=== PATIENT | male | born 1990 | race Caucasian/White ===

== ENCOUNTER 2024-10-30 15:25 | Emergency (ER) | payer SELFPAY ==
--- NOTE | ~2024-10-30 | XR_ITS ---
HISTORY: injury COMPARISON: None TECHNIQUE: 3 views of the right hand were performed. FINDINGS: Acute nondisplaced spiral fracture within the proximal shaft of the third metacarpal. The joint spaces are preserved. The carpal arcs are intact. Mild radiocarpal joint space narrowing with sclerosis of the distal radius is present. Bone mineralization is age-appropriate. Significant dorsal soft tissue swelling. No radiopaque foreign body is identified. IMPRESSION: Acute nondisplaced spiral fracture within the proximal shaft of the third metacarpal with overlying soft tissue swelling. Reviewed, dictated and finalized at location A.
[2024-10-30 15:34] VITALS: BP 115/73; PULSE 83; RESP 16; TEMP 36.5; O2SAT 99
--- NOTE | 2024-10-30 16:19 | ED_ITS ---
HPI - Extremity Injury (Upper) General Chief Complaint: Extremity Injury, Upper Stated Complaint: Right Hand Pain Time Seen by Provider: 10/30/24 15:30 Source: patient Mode of arrival: ambulatory Limitations: no limitations History of Present Illness HPI narrative: Patient is a 34-year-old male who presents pain and swelling to right hand since yesterday when he punched a piece of metal. No cuts or lacerations. Has taken ibuprofen and used ice Related Data Allergies Allergy/AdvReac Type Severity Reaction Status Date / Time No Known Allergies Allergy Verified 10/30/24 15:27 Review of Systems Review of Systems: All systems reviewed & are unremarkable except as noted in HPI and below Constitutional: Constitutional: Denies body ache(s), Denies fever(s), Denies headache(s), Denies malaise and Denies weakness Eyes: Eyes: Reports no additional eye complaints and Denies loss of vision ENT: Reports system reviewed and no additional complaints, except as documented, Denies otalgia, Denies headache(s), Denies nasal discharge, Denies sinus pain and Denies sore throat Cardiovascular: Cardiovascular: Reports no additional cardiovascular complaints, Denies chest pain, Denies irregular heart rhythm and Denies dyspnea Respiratory: Respiratory: Reports no additional respiratory complaints and Denies dyspnea Gastrointestinal: Gastrointestinal: Reports no additional gastrointestinal complaints, Denies abdominal pain, Denies melena, Denies hematochezia, Denies diarrhea, Denies nausea and Denies vomiting Musculoskeletal: Musculoskeletal: Reports no additional musculoskeletal complaints, Denies back pain, Denies myalgias, Reports arthralgias and Reports joint swelling Integumentary/Breasts: Skin/Breast: Reports system reviewed and no additional complaints, except as docu, Denies pruritus and Denies rash Neurologic: Reports system reviewed and no additional complaints, except as documented, Denies headache(s), Denies loss of vision and Denies weakness Psychiatric: Psychiatric: Reports no additional psychiatric complaints PMFSH Comments At time of signature, agree with nursing past medical, surgical, social and family history. There is no relevant family history pertinent to the presenting complaint. Exam Const: General: cooperative, healthy appearing, comfortable, no acute distress and well nourished Nutritional Appearance: well nourished Orientation/ consciousness: patient oriented x3 Limitations: no limitations HENMT: Head: normal to inspection, normocephalic and atraumatic Ears: external ears normal Face/Nose/Sinus: Normal external nose present, normal facial exam and face symmetric Face and sinus: normal facial exam and face symmetric Mouth: Yes lip normal Eyes: General: appearance normal, both eyes and all related structures Alignment and Position: alignment normal and position normal Eyelids: eyelids normal Pupils: Equal, round and reactive pupils present EOM: EOMs intact bilaterally Neck: Neck: normal visual inspection and full ROM Chest: Chest palpation & inspection: normal inspection of the chest Resp: Effort & Inspection: normal respiratory effort and able to speak in complete sentences Auscultation: clear to auscultation bilaterally Cardio: Rate: regular rate Rhythm: regular rhythm Heart sounds: S1 normal heart sound present and S2 normal heart sound present GI: Inspection: normal to inspection Skin: General skin exam: normal color and no rashes or lesions noted Neuro: General: patient oriented x3 and moves all extremities Cranial nerves: Yes Equal, round and reactive pupils present Speech: normal speech Gait exam (Neuro): Normal gait present Extrem: General: normal to inspection, full ROM and no edema Right upper extremity: wrist normal ROM and radial pulse present 4+; no tenderness, no swelling, no ecchymosis and no deformity and Extremity exam: right hand normal capillary refill, neuromotor exam normal wrist extension normal, thumb opposition normal, thumb IP flexion normal, thumb ADduction normal and fingers 2-5 ABduction normal, neurosensory exam normal radial nerve sensory function normal, ulnar nerve sensory function normal, median nerve sensory function normal and digital nerve sensory function normal, tendon exam normal of all digits extensor tendon, flexor digitorum profundus and flexor digitorum superficialis, tenderness of the dorsal hand over the 3rd metacarpal, vascular exam radial pulse present and normal capillary refill, normal ROM of fingers and swelling of the dorsal hand Psych: Appearance: grossly normal and well kempt Mental Status: mental status grossly normal Speech and movement: Normal speech and movement present Affect: normal affect Attitude: cooperative Thought process: Normal thought process present Course Course Emergency Course: Patient is aware of diagnosis, understands and agrees to treatment plan. Anticipatory guidance given. Patient agrees to follow-up as directed and is aware of reasons to seek care at the emergency department. Portions of this record may have been created with voice recognition software Level of Care: Express Care Visit Vital Signs Vital signs: Vital Signs Temperature 36.5 C 10/30/24 15:34 Pulse Rate 83 10/30/24 15:34 Respiratory Rate 16 10/30/24 15:34 Blood Pressure 115/73 10/30/24 15:34 Pulse Oximetry 99 10/30/24 15:34 Oxygen Delivery Room Air 10/30/24 15:34 Temperature 36.5 C 10/30/24 15:34 Pulse Rate 83 10/30/24 15:34 Respiratory Rate 16 10/30/24 15:34 Blood Pressure 115/73 10/30/24 15:34 Pulse Oximetry 99 10/30/24 15:34 Oxygen Delivery Room Air 10/30/24 15:34 Reviewed Procedures Orthopedic Splinting/Casting Injury #1: Splinting/Casting Date: 10/30/24 Splinting/Casting Time: 17:00 Side: right Upper Extremity Injury Location: wrist and hand Upper Extremity Immobilizer: sling/shoulder immobilizer and ulnar gutter (radial) Splint: customized in ED OCL: ulnar gutter (radial) Pre-Procedure Neuro Vascular Exam: normal Post-Procedure Neuro Vascular Exam: normal MDM - Extremity Injury (Upper) MDM Narrative Medical decision making narrative: The dorsum of the hand is diffusely swollen and tender, primarily over 3rd metacarpal. The skin is intact. Flexion and extension of the fingers is full and strong. Placed in radial(not an option to order) gutter and sling. Ortho follow up given Pt well hydrated appearing, in no respiratory distress, hemodynamically stable. The patient is stable at time of discharge the clinical impression was discussed and the patient was given the opportunity to ask questions, which were addressed as completely as possible given the information available at present. Anticipatory guidance and return to care precautions were discussed and the importance of primary care follow-up was stressed and encouraged. The patient voiced understanding of the plan, indications to return, and the need for follow-up. Patient is appropriate for outpatient treatment and follow-up. Differential Diagnosis Differential diagnosis: Likely sprain and strain of wrist, fracture of wrist and other (Hand fracture, hand strain) Imaging Data Radiologist's impression: HISTORY: injury COMPARISON: None TECHNIQUE: 3 views of the right hand were performed. FINDINGS: Acute nondisplaced spiral fracture within the proximal shaft of the third metacarpal. The joint spaces are preserved. The carpal arcs are intact. Mild radiocarpal joint space narrowing with sclerosis of the distal radius is present. Bone mineralization is age-appropriate. Significant dorsal soft tissue swelling. No radiopaque foreign body is identified. IMPRESSION: Acute nondisplaced spiral fracture within the proximal shaft of the third metacarpal with overlying soft tissue swelling. Discharge Plan Discharge Clinical Impression: Fracture of hand Qualifiers: Encounter type: initial encounter Fracture type: closed Laterality: right Qualified Code(s): S62.91XA - Unspecified fracture of right wrist and hand, initial encounter for closed fracture Patient Disposition: Home Condition: Stable Instructions: Hand Fracture (ED) Additional Instructions: Please rest, ice and elevate the affected extremity. Please take Motrin 800mg every 8 hours, as needed, for pain (take with food). Follow up with Orthopedic Surgery in 1-2 days for further evaluation - please call for an appointment. Keep splint/cast clean, dry and on. Please use garbage bag while showering to keep splint/cast dry. Use sling. Please go to ER immediately for increased pain, tingling/numbness, swelling, redness, and fever Patient Language: Nepali Prescriptions: New ibuprofen 800 mg tablet 800 mg PO TID PRN (Reason: pain) Qty: 30 0RF Follow-up/Referrals: Mart Ralph MD [Physician] - 3 Days (right hand fracture) Stand Alone Forms: Work/School Release IP Time of Disposition: 17:03
== END 2024-10-30 17:10 | disposition home or self-care (01) ==
PROVIDERS: Emergency Provider Nurse Practitioner Family
DX: S62.352A Nondisplaced fracture of shaft of third metacarpal bone, right hand, initial encounter for closed fracture (principal); W22.8XXA Striking against or struck by other objects, initial encounter
CPT/HCPCS: 29125; 73130; 99204; A4565; G0463